=== PATIENT | male | born 1950 | race American Indian/Alaskan Native ===

== ENCOUNTER 2016-12-15 11:14 | Emergency (ER) | payer MEDICARE ==
[2016-12-15 11:35] VITALS: BP 122/80
--- NOTE | 2016-12-15 12:14 | Emergency Department Report ---
Chief Complaint: Chest Pain Stated Complaint: CHEST PAIN Time Seen by Provider: 12/15/16 12:06 - HPI History of Present Illness: Patient here reports uncomfortable feeling and feeling of drowning. He denies cough but reports shortness of breath. PT has a history of CHF, hypertension and arthritis. Denies any swelling in his legs or abdomen. Complaining the chest tightness is 9 out of 10. Denies any nausea or vomiting. Denies any fever or chills. - ROS Review of Systems: all Systems are negative unless stated in HPI above. - Exam Vital Signs: Vital Signs 12/15/16 11:18 Temperature 97.9 F Pulse Rate 66 Respiratory 18 Rate Blood Pressure 122/80 O2 Sat by Pulse 99 Oximetry Physical Exam: General: This is a 66-year-old male well-nourished well-developed in no acute distress. CV: S1, S2. Regular rate and rhythm. Lungs: Clear to auscultate bilaterally, normal work of breathing. Extremity: No clubbing, cyanosis or swelling. Positive pulses MSE screening note: Focused history and physical exam performed. Due to findings the following was ordered:[facility] ED Medical Decision Making - Medical Decision Making Medical decision making: Patient seen by provider in triage area. Appropriate protocol activated and patient to main ED to be seen by physician. ED Disposition for MSE Condition: Stable
[2016-12-15 12:48] LABS: Hematocrit 41.8 % (35.5-45.6); Hemoglobin 13.8 gm/dl (11.8-15.2); Mean Corpuscular HGB Conc 33 % (32-34); Mean Corpuscular Hemoglobin 33 pg (28-32); Mean Corpuscular Volume 99 fl (84-94); Red Blood Count 4.21 M/mm3 (3.65-5.03); Red Cell Distribution Width 14.2 % (13.2-15.2)
[2016-12-15 12:49] LABS: Platelet Count 70 K/mm3 (140-440)
[2016-12-15 13:06] LABS: Creatine Kinase MB 10.2 ng/mL (0.0-4.0)
[2016-12-15 13:09] LABS: Alanine Aminotransferase 34 units/L (7-56); Albumin 3.7 g/dL (3.9-5); Albumin/Globulin Ratio 0.8 %; Alkaline Phosphatase 176 units/L (35-129); Bilirubin,Direct 0.2 mg/dL (0-0.2); Bilirubin,Indirect 0.4 mg/dL; Bilirubin,Total 0.6 mg/dL (0.1-1.2); Blood Urea Nitrogen 10 mg/dL (9-20); Calcium 8.8 mg/dL (8.4-10.2); Carbon Dioxide 25 mmol/L (22-30); Chloride 99.4 mmol/L (98-107); Creatine Kinase 659 units/L (55-170); Glucose 88 mg/dL (75-100); Potassium 4.3 mmol/L (3.6-5.0); Sodium 138 mmol/L (137-145); Total Protein 8.2 g/dL (6.3-8.2)
[2016-12-15 13:13] LABS: Anion Gap 18 mmol/L
[2016-12-15 13:45] LABS: Basophils % (Manual) 0 % (0.0-1.8); Blastocytes % (Manual) 0 %
[2016-12-15 13:46] LABS: Anisocytosis 1+; Diff Status Complete; Platelet Estimate Consistent w Auto
[2016-12-15 14:08] LABS: Bilirubin,Urine NEG (Negative); Blood,Urine MOD (Negative); Ketones,Urine NEG (Negative); Leukocyte Esterase,Urine NEG (Negative); Nitrite,Urine NEG (Negative)
--- NOTE | 2016-12-15 14:24 | XRay Report ---
ROUTINE CHEST, TWO VIEWS: HISTORY: chest pain. The trachea, heart, mediastinal contour, lung costa and bony thorax are unremarkable. IMPRESSION: Unremarkable chest x-ray. No significant change since 11/16/15.
--- NOTE | 2016-12-17 19:19 | ED Elopement Review ---
ED Pt Elopement review - Results review Lab results: Laboratory Tests 12/15/16 12/15/16 12/15/16 12:33 12:33 12:33 WBC 3.0 L RBC 4.21 Hgb 13.8 Hct 41.8 MCV 99 H MCH 33 H MCHC 33 RDW 14.2 Plt Count 70 L [place] % (Auto) Glaciologist Add Manual Diff Complete Total Counted 100 Seg Neutrophils % Glaciologist Seg Neuts % (Manual) 39.0 L Band Neutrophils % 1.0 Lymphocytes % (Manual) 44.0 H Reactive Lymphs % (Man) 0 Monocytes % (Manual) 10.0 H Eosinophils % (Manual) 4.0 Basophils % (Manual) 0 Metamyelocytes % 1.0 Myelocytes % 1.0 Promyelocytes % 0 Blast Cells % 0 Nucleated RBC % Not Reportable Seg Neutrophils # Man 1.2 L Band Neutrophils # 0.0 Lymphocytes # (Manual) 1.3 Abs React Lymphs (Man) 0.0 Monocytes # (Manual) 0.3 Eosinophils # (Manual) 0.1 Basophils # (Manual) 0.0 Metamyelocytes # 0.0 Myelocytes # 0.0 Promyelocytes # 0.0 Blast Cells # 0.0 WBC Morphology Not Reportable Hypersegmented Neuts Not Reportable Hyposegmented Neuts Not Reportable Hypogranular Neuts Not Reportable Smudge Cells Not Reportable Toxic Granulation Not Reportable Toxic Vacuolation Not Reportable Dohle Bodies Not Reportable Pelger-Huet Anomaly Not Reportable Isis Rods Not Reportable Platelet Estimate Consistent w auto Clumped Platelets Not Reportable Plt Clumps, EDTA Not Reportable Large Platelets Not Reportable Giant Platelets Not Reportable Platelet Satelliting Not Reportable Plt Morphology Comment Not Reportable RBC Morphology Not Reportable Dimorphic RBCs Not Reportable Polychromasia Not Reportable Hypochromasia Not Reportable Poikilocytosis Not Reportable Anisocytosis 1+ Microcytosis Not Reportable Macrocytosis Not Reportable Spherocytes Not Reportable Pappenheimer Bodies Not Reportable Sickle Cells Not Reportable Target Cells Not Reportable Tear Drop Cells Not Reportable Ovalocytes Not Reportable Helmet Cells Not Reportable [place] Bodies Not Reportable [place] Rings Not Reportable [place] Cells Not Reportable Bite Cells Not Reportable Crenated Cell Not Reportable Elliptocytes Not Reportable Acanthocytes (Spur) Not Reportable Rouleaux Not Reportable Hemoglobin C Crystals Not Reportable Schistocytes Not Reportable Malaria parasites Not Reportable Alberto Bodies Not Reportable Hem Pathologist Commnt No Sodium 138 Potassium 4.3 Chloride 99.4 Carbon Dioxide 25 Anion Gap 18 BUN 10 Creatinine 1.0 Estimated GFR > 60 BUN/Creatinine Ratio 10.00 Glucose 88 Calcium 8.8 Total Bilirubin 0.6 Direct Bilirubin 0.2 Indirect Bilirubin 0.4 AST 120 H ALT 34 Alkaline Phosphatase 176 H Total Creatine Kinase 659 H CK-MB (CK-2) 10.2 H CK-MB (CK-2) Rel Index 1.5 Troponin T 0.014 NT-Pro-B Natriuret Pep 306.2 Total Protein 8.2 Albumin 3.7 L Albumin/Globulin Ratio 0.8 Urine Color Urine Turbidity Urine pH Ur Specific [place] Urine Protein Urine Glucose (UA) Urine Ketones Urine Blood Urine Nitrite Urine Bilirubin Urine Urobilinogen Ur Leukocyte Esterase Urine WBC (Auto) Urine RBC (Auto) 12/15/16 Unknown WBC RBC Hgb Hct MCV MCH MCHC RDW Plt Count [place] % (Auto) Add Manual Diff Total Counted Seg Neutrophils % Seg Neuts % (Manual) Band Neutrophils % Lymphocytes % (Manual) Reactive Lymphs % (Man) Monocytes % (Manual) Eosinophils % (Manual) Basophils % (Manual) Metamyelocytes % Myelocytes % Promyelocytes % Blast Cells % Nucleated RBC % Seg Neutrophils # Man Band Neutrophils # Lymphocytes # (Manual) Abs React Lymphs (Man) Monocytes # (Manual) Eosinophils # (Manual) Basophils # (Manual) Metamyelocytes # Myelocytes # Promyelocytes # Blast Cells # WBC Morphology Hypersegmented Neuts Hyposegmented Neuts Hypogranular Neuts Smudge Cells Toxic Granulation Toxic Vacuolation Dohle Bodies Pelger-Huet Anomaly Isis Rods Platelet Estimate Clumped Platelets Plt Clumps, EDTA Large Platelets Giant Platelets Platelet Satelliting Plt Morphology Comment RBC Morphology Dimorphic RBCs Polychromasia Hypochromasia Poikilocytosis Anisocytosis Microcytosis Macrocytosis Spherocytes Pappenheimer Bodies Sickle Cells Target Cells Tear Drop Cells Ovalocytes Helmet Cells [place] Bodies [place] Rings [place] Cells Bite Cells Crenated Cell Elliptocytes Acanthocytes (Spur) Rouleaux Hemoglobin C Crystals Schistocytes Malaria parasites Alberto Bodies Hem Pathologist Commnt Sodium Potassium Chloride Carbon Dioxide Anion Gap BUN Creatinine Estimated GFR BUN/Creatinine Ratio Glucose Calcium Total Bilirubin Direct Bilirubin Indirect Bilirubin AST ALT Alkaline Phosphatase Total Creatine Kinase CK-MB (CK-2) CK-MB (CK-2) Rel Index Troponin T NT-Pro-B Natriuret Pep Total Protein Albumin Albumin/Globulin Ratio Urine Color Yellow Urine Turbidity Clear Urine pH 5.0 Ur Specific [place] 1.012 Urine Protein 100 mg/dl Urine Glucose (UA) Neg Urine Ketones Neg Urine Blood Mod Urine Nitrite Neg Urine Bilirubin Neg Urine Urobilinogen 4.0 Ur Leukocyte Esterase Neg Urine WBC (Auto) 1.0 Urine RBC (Auto) 4.0 - Call Back decision Pt Call Back Decision: No action required
== END 2016-12-15 17:00 | disposition left against medical advice (07) ==
LOC: ED 11:14
DX: R07.89 Other chest pain (principal); I11.0 Hypertensive heart disease with heart failure; I50.9 Heart failure, unspecified; M19.90 Unspecified osteoarthritis, unspecified site; Z53.21 Procedure and treatment not carried out due to patient leaving prior to being seen by health care provider
CPT/HCPCS: 36415; 71020; 80048; 80074; 81001; 82550; 82553; 83880; 84484; 85007; 85025; 93005; 93010

== ENCOUNTER 2016-12-29 14:03 | Emergency (ER) | payer MEDICARE ==
[2016-12-29 14:35] LABS: Basophils % (Auto) 1.1 % (0.0-1.8); Eosinophils % (Auto) 0.3 % (0.0-4.3); Hematocrit 42.7 % (35.5-45.6); Hemoglobin 14.2 gm/dl (11.8-15.2); Mean Corpuscular HGB Conc 33 % (32-34); Mean Corpuscular Hemoglobin 33 pg (28-32); Mean Corpuscular Volume 98 fl (84-94); Red Blood Count 4.36 M/mm3 (3.65-5.03); Red Cell Distribution Width 13.7 % (13.2-15.2); White Blood Count 3.8 K/mm3 (4.5-11.0)
[2016-12-29 14:39] LABS: Platelet Count 69 K/mm3 (140-440)
[2016-12-29 14:46] LABS: Anion Gap 24 mmol/L; BUN/Creatinine Ratio 12.22; Blood Urea Nitrogen 11 mg/dL (9-20); Calcium 9.4 mg/dL (8.4-10.2); Carbon Dioxide 24 mmol/L (22-30); Chloride 93.9 mmol/L (98-107); Glucose 117 mg/dL (75-100); Potassium 4.8 mmol/L (3.6-5.0); Sodium 137 mmol/L (137-145)
[2016-12-29] MEDS ORDERED: NORCO 5/325 PO ONE (17:49)
[2016-12-29] MEDS ORDERED: ZOFRAN IV ONE (17:52)
[2016-12-29] MEDS ORDERED: ATIVAN IV ONE (17:52)
[2016-12-29] MEDS ORDERED: VITAMIN B-1 100 MG in NACL 0.9% 50 ML IV ONE (17:52)
[2016-12-29] MEDS ORDERED: MORPHINE IV ONE (17:53)
[2016-12-29] MEDS ORDERED: FOLVITE 1 MG in NACL 0.9% 50 ML IV ONE (17:53)
[2016-12-29] MEDS ORDERED: NORCO 5/325 ONE (18:31)
[2016-12-29 18:59] LABS: Albumin 4.1 g/dL (3.9-5); Albumin/Globulin Ratio 0.9 %; Bilirubin,Direct 0.6 mg/dL (0-0.2); Bilirubin,Indirect 0.9 mg/dL; Bilirubin,Total 1.5 mg/dL (0.1-1.2); Magnesium 1.3 mg/dL (1.7-2.3); Total Protein 8.7 g/dL (6.3-8.2)
[2016-12-29] MEDS ORDERED: MAGNESIUM SULFATE 2GM/50ML 2 GM/50 ML BAG IV ONE (19:27)
--- NOTE | 2016-12-29 20:18 | Emergency Department Report ---
ED Back Pain/Injury HPI - General Chief Complaint: Chest Pain Stated Complaint: BACK PAIN/VOMITING Time Seen by Provider: 12/29/16 17:36 Source: patient, old records reviewed Limitations: No Limitations - History of Present Illness Initial Comments: 66-year-old male with a past medical history of alcohol abuse, hypertension, and CHF presents to the hospital complaints of thoracic back pain since waking up this morning. Pain is aching, constant, worsen movement and moderate in intensity. No relieving factors reported. Patient states that he has shortness of the chest tightness this morning as well as per triage but patient states to me that the symptoms were mild. Patient had nausea with 4 episodes of vomiting and complains of epigastric pain. Patient drinks beer daily and history of alcohol withdrawal seizures and tremors. Last drink was yesterday. No reported hematemesis, melena, or hematochezia. Pt denies recent fall injury, trauma, weakness, numbness, or urinary incontinence past record: Echocardiogram 08/2015 EF 15-20% Cardiac cath 12/14/2014; nonischemic cardiomyopathy EF 15-20% - Related Data Previous Rx's Medication Instructions Recorded Last Taken Type Aspirin EC [Aspirin Enteric Coated 325 mg PO QDAY #30 tablet 09/21/15 03/17/16 Rx TAB] Carvedilol [Coreg] 6.25 mg PO BID #60 tablet 09/21/15 03/17/16 Rx Furosemide [Lasix TAB] 40 mg PO QDAY #30 tablet 09/21/15 03/17/16 Rx Lisinopril [Zestril TAB] 10 mg PO QDAY #30 tablet 09/21/15 03/17/16 Rx Spironolactone [Aldactone] 25 mg PO QDAY #30 tablet 09/21/15 03/17/16 Rx Butalb/Acetamin/Caff 50-325-40 1 each PO Q4H PRN #30 tablet 03/17/16 Unknown Rx [Fioricet] Cyclobenzaprine [Flexeril] 10 mg PO TID PRN #30 tablet 03/17/16 Unknown Rx HYDROcodone/APAP 5-325 [[place] 1 each PO Q6HR PRN #20 tablet 12/30/16 Unknown Rx 5-325 mg TAB] Ibuprofen [Motrin 600 MG tab] 600 mg PO Q8H PRN #30 tablet 12/30/16 Unknown Rx Omeprazole Magnesium [PriLOSEC] 10 mg PO QDAY #30 suspdr.pkt 12/30/16 Unknown Rx Ondansetron [Zofran Odt] 4 mg PO Q8HR PRN #20 tab.rapdis 12/30/16 Unknown Rx Allergies Allergy/AdvReac Type Severity Reaction Status Date / Time No Known Allergies Allergy Verified 12/15/16 11:30 ED Review of Systems ROS: Stated complaint: BACK PAIN/VOMITING Other details as noted in HPI Comment: All other systems reviewed and negative Other: Constitutional: No fevers chills Eyes: No eye pain visual changes ENT: No ear pain or throat pain Neck: Denies pain Respiratory: Denies cough wheezing Cardiovascular: Denies palpitations GI: as per hpi : Denies dysuria Musculoskeletal: as per hpi Skin: Denies rash, lesions, erythema Neurologic: Denies headache, numbness, weakness Psychiatric: Denies suicidal ideation, hallucinations ED Past Medical Hx - Past Medical History Hx Hypertension: Yes Hx Diabetes: No Hx Liver Disease: Yes (Hepatitis C) Hx Renal Disease: Yes Hx Arthritis: Yes Hx Seizures: Yes Additional medical history: ETOH abuse. Echocardiogram 08/2015 EF 15-20%. Cardiac cath 12/14/2014; nonischemic cardiomyopathy EF 15-20% - Surgical History Hx Cholecystectomy: Yes Additional Surgical History: "gallstones" - Social History Smoking Status: Former Smoker Substance Use Type: Alcohol - Medications Home Medications: Home Medications Medication Instructions Recorded Confirmed Last Taken Type Aspirin EC [Aspirin Enteric Coated 325 mg PO QDAY #30 tablet 09/21/15 03/17/16 03/17/16 Rx TAB] Carvedilol [Coreg] 6.25 mg PO BID #60 tablet 09/21/15 03/17/16 03/17/16 Rx Furosemide [Lasix TAB] 40 mg PO QDAY #30 tablet 09/21/15 03/17/16 03/17/16 Rx Lisinopril [Zestril TAB] 10 mg PO QDAY #30 tablet 09/21/15 03/17/16 03/17/16 Rx Spironolactone [Aldactone] 25 mg PO QDAY #30 tablet 09/21/15 03/17/16 03/17/16 Rx Butalb/Acetamin/Caff 50-325-40 1 each PO Q4H PRN #30 tablet 03/17/16 Unknown Rx [Fioricet] Cyclobenzaprine [Flexeril] 10 mg PO TID PRN #30 tablet 03/17/16 Unknown Rx HYDROcodone/APAP 5-325 [[place] 1 each PO Q6HR PRN #20 tablet 12/30/16 Unknown Rx 5-325 mg TAB] Ibuprofen [Motrin 600 MG tab] 600 mg PO Q8H PRN #30 tablet 12/30/16 Unknown Rx Omeprazole Magnesium [PriLOSEC] 10 mg PO QDAY #30 suspdr.pkt 12/30/16 Unknown Rx Ondansetron [Zofran Odt] 4 mg PO Q8HR PRN #20 tab.rapdis 12/30/16 Unknown Rx ED Physical Exam - General Limitations: No Limitations - Other Other exam information: General: No limitations, patient is alert in no acute distress Head exam: Atraumatic, normocephalic Eyes exam: Normal appearance ENT: Moist mucous membrane, normal oropharynx Neck exam: Normal inspection, full range of motion, no meningismus nontender Respiratory exam: Clear to auscultation bilateral, no wheezes, rales, crackles Cardiovascular: Normal rate and rhythm, normal heart sounds Abdomen: Soft, nondistended, epigastric tenderness, with normal bowel sounds, no rebound, or guarding Extremity: Full range of motion normal inspection no deformity Back: Normal Inspection, full range of motion, mild tenderness at mid thoracic area Incr with movement Neurologic: Alert, oriented x3, cranial nerves intact, no motor or sensory deficit, tremor with movement noted Psychiatric: normal affect, normal mood Skin: Warm, dry, intact ED Course Vital Signs 12/29/16 12/29/16 12/29/16 14:10 15:12 18:56 Temperature 97.4 F L Pulse Rate 59 L 73 Respiratory 20 14 Rate Blood Pressure 148/102 Blood Pressure [Right] O2 Sat by Pulse 99 100 98 Oximetry 12/29/16 22:50 Temperature Pulse Rate 67 Respiratory 18 Rate Blood Pressure Blood Pressure 123/86 [Right] O2 Sat by Pulse 98 Oximetry ED Medical Decision Making - Lab Data Result diagrams: 12/29/16 14:22 12/29/16 14:22 Lab Results 12/29/16 12/29/16 12/29/16 Range/Units 14:22 14:22 14:22 WBC 3.8 L (4.5-11.0) K/mm3 RBC 4.36 (3.65-5.03) M/mm3 Hgb 14.2 (11.8-15.2) gm/dl Hct 42.7 (35.5-45.6) % MCV 98 H (84-94) fl MCH 33 H (28-32) pg MCHC 33 (32-34) % RDW 13.7 (13.2-15.2) % Plt Count 69 L (140-440) K/mm3 Lymph % (Auto) 36.2 H (13.4-35.0) % [place] % (Auto) 11.9 H (0.0-7.3) % Eos % (Auto) 0.3 (0.0-4.3) % Baso % (Auto) 1.1 (0.0-1.8) % Lymph # 1.4 (1.2-5.4) K/mm3 [place] # 0.4 (0.0-0.8) K/mm3 Eos # 0.0 (0.0-0.4) K/mm3 Baso # 0.0 (0.0-0.1) K/mm3 Seg Neutrophils % 50.5 (40.0-70.0) % Seg Neutrophils # 1.9 (1.8-7.7) K/mm3 Sodium 137 (137-145) mmol/L Potassium 4.8 (3.6-5.0) mmol/L Chloride 93.9 L (98-107) mmol/L Carbon Dioxide 24 (22-30) mmol/L Anion Gap 24 mmol/L BUN 11 (9-20) mg/dL Creatinine 0.9 (0.8-1.5) mg/dL Estimated GFR > 60 ml/min BUN/Creatinine Ratio 12.22 % Glucose 117 H (75-100) mg/dL Calcium 9.4 (8.4-10.2) mg/dL Magnesium 1.3 L (1.7-2.3) mg/dL Total Bilirubin 1.5 H (0.1-1.2) mg/dL Direct Bilirubin 0.6 H (0-0.2) mg/dL Indirect Bilirubin 0.9 mg/dL AST 136 H (5-40) units/L ALT 36 (7-56) units/L Alkaline Phosphatase 139 H (35-129) units/L Troponin T 0.011 (0.00-0.029) ng/mL Total Protein 8.7 H (6.3-8.2) g/dL Albumin 4.1 (3.9-5) g/dL Albumin/Globulin Ratio 0.9 % Lipase 15 (13-60) units/L 12/29/16 12/29/16 Range/Units 17:54 20:23 WBC (4.5-11.0) K/mm3 RBC (3.65-5.03) M/mm3 Hgb (11.8-15.2) gm/dl Hct (35.5-45.6) % MCV (84-94) fl MCH (28-32) pg MCHC (32-34) % RDW (13.2-15.2) % Plt Count (140-440) K/mm3 Lymph % (Auto) (13.4-35.0) % [place] % (Auto) (0.0-7.3) % Eos % (Auto) (0.0-4.3) % Baso % (Auto) (0.0-1.8) % Lymph # (1.2-5.4) K/mm3 [place] # (0.0-0.8) K/mm3 Eos # (0.0-0.4) K/mm3 Baso # (0.0-0.1) K/mm3 Seg Neutrophils % (40.0-70.0) % Seg Neutrophils # (1.8-7.7) K/mm3 Sodium (137-145) mmol/L Potassium (3.6-5.0) mmol/L Chloride (98-107) mmol/L Carbon Dioxide (22-30) mmol/L Anion Gap mmol/L BUN (9-20) mg/dL Creatinine (0.8-1.5) mg/dL Estimated GFR ml/min BUN/Creatinine Ratio % Glucose (75-100) mg/dL Calcium (8.4-10.2) mg/dL Magnesium (1.7-2.3) mg/dL Total Bilirubin (0.1-1.2) mg/dL Direct Bilirubin (0-0.2) mg/dL Indirect Bilirubin mg/dL AST (5-40) units/L ALT (7-56) units/L Alkaline Phosphatase (35-129) units/L Troponin T 0.011 0.020 (0.00-0.029) ng/mL Total Protein (6.3-8.2) g/dL Albumin (3.9-5) g/dL Albumin/Globulin Ratio % Lipase (13-60) units/L - EKG Data -: EKG Interpreted by Me (nsr 73, nonspecivid t abnl, prolonged qt) - EKG Data When compared to previous EKG there are: no significant change (12/15/16) - Radiology Data Radiology results: report reviewed, image reviewed (cxr pa/lat: naf) ct angio chest: no dissection, no pe, nondisplaced right 10th rib fracture with other old healed right rib fractures. calcified granuloma in the mediastinum - Medical Decision Making Pt ct unremarkable. Patient's pain is in the mid posterior thoracic area and worse with movement and palpation therefore I believe it is musculoskeletal in origin. Patient minimizes chest pain. He denies chest pain in the ED with unchanged EKG and presented to negative cardiac enzymes x 3. Patient also has had a cardiac cath negative for CAD in November 2014. Chronic thrombocytopenia likely secondary to alcohol abuse. Patient also has hypomagnesemia and received magnesium supplementation in the ED. Patient also received thiamine, folate, numbness feeling, and Ativan - Differential Diagnosis fxt, sprain, mi, pe, disection, unstable angina, pancreatitis, gastitis Critical Care Time: No Critical care attestation.: If time is entered above; I have spent that time in minutes in the direct care of this critically ill patient, excluding procedure time. ED Disposition Clinical Impression: Hypomagnesemia, Alcohol abuse, Thrombocytopenia Thoracic back pain Qualifiers: Chronicity: acute Back pain laterality: midline Qualified Code(s): M54.6 - Pain in thoracic spine Rib fractures Qualifiers: Encounter type: sequela Rib fracture type: multiple ribs Fracture type: closed Laterality: right Qualified Code(s): S22.41XS - Multiple fractures of ribs, right side, sequela Alcoholic gastritis Qualifiers: Chronicity: acute Gastritis bleeding: without bleeding Qualified Code(s): K29.20 - Alcoholic gastritis without bleeding Disposition: DISCHARGED TO HOME OR SELFCARE Is pt being admited?: No Does the pt Need Aspirin: No Condition: Stable Instructions: Thoracic Pain (ED), Abuse of Alcohol (ED), Gastritis (ED) Additional Instructions: Take the medication as prescribed. Return if symptoms worsen. Prescriptions: HYDROcodone/APAP 5-325 [[place] 5-325 mg TAB] 1 each PO Q6HR PRN #20 tablet PRN Reason: Pain Ibuprofen [Motrin 600 MG tab] 600 mg PO Q8H PRN #30 tablet PRN Reason: Pain Omeprazole Magnesium [PriLOSEC] 10 mg PO QDAY #30 suspdr.pkt Ondansetron [Zofran Odt] 4 mg PO Q8HR PRN #20 tab.rapdis PRN Reason: Nausea And Vomiting Referrals: RUSSELL DHALIWAL MD [Primary Care Provider] - 3-5 Days Time of Disposition: 00:10
[2016-12-29] MEDS ORDERED: NACL ONE (20:42)
--- NOTE | 2016-12-29 22:07 | Cat Scan Report ---
FINAL REPORT PROCEDURE: CT ANGIO CHEST TECHNIQUE: Computerized tomographic angiography of the chest was performed after the IV injection of iodinated nonionic contrast including image processing. The image data was postprocessed using 2-dimensional multiplanar reformatted (MPR) and 3-dimensional (MIP and/or volume rendered) techniques. HISTORY: thoracic pain, cp COMPARISON: CTA exam dated September 19, 2015 FINDINGS: Mild hypoventilatory changes are seen in the right lower lung. No pneumothorax or pleural effusion is seen. There is likely fatty infiltration of the liver. The heart and thoracic aorta are normal in size. No evidence of aortic dissection is seen. Calcified granuloma are seen in the mediastinum. No pulmonary embolus is seen. There is a nondisplaced fracture of the lateral aspect the right 10th rib with other old healed right lower rib fractures. IMPRESSION: No pulmonary embolus is seen. Nondisplaced right 10th rib fracture is seen.
[2016-12-29 22:51] VITALS: BP 123/86
--- NOTE | 2016-12-30 09:40 | XRay Report ---
Chest 2 views: Compared to 12/15/16. History: Thoracic back pain, chest pain. Findings: Normal cardiomediastinal silhouette. Trachea is midline. No consolidation, pneumothorax or pleural effusion. Impression: No acute cardiopulmonary findings.
== END 2016-12-30 01:32 | disposition home or self-care (01) ==
LOC: ED 14:03
DX: E83.42 Hypomagnesemia (principal); S22.41XS Multiple fractures of ribs, right side, sequela; K29.20 Alcoholic gastritis without bleeding; F10.10 Alcohol abuse, uncomplicated; D69.6 Thrombocytopenia, unspecified; I10 Essential (primary) hypertension; M19.90 Unspecified osteoarthritis, unspecified site; Z79.82 Long term (current) use of aspirin; Z87.891 Personal history of nicotine dependence
CPT/HCPCS: 36415; 71020; 71275; 80048; 80074; 83690; 83735; 84484; 85025; 93005; 93010; 96374; 96375; 99285; J2060; J2270; J2405; J3411; J3475; Q9967

== ENCOUNTER 2017-01-10 12:32 | Emergency (ER) | payer MEDICARE ==
[2017-01-10 13:18] LABS: Basophils % (Auto) 1.3 % (0.0-1.8); Eosinophils % (Auto) 2.7 % (0.0-4.3); Hemoglobin 14.2 gm/dl (11.8-15.2); Mean Corpuscular HGB Conc 32 % (32-34); Mean Corpuscular Hemoglobin 32 pg (28-32); Mean Corpuscular Volume 99 fl (84-94); Platelet Count 224 K/mm3 (140-440); Red Blood Count 4.45 M/mm3 (3.65-5.03); Red Cell Distribution Width 13.7 % (13.2-15.2); White Blood Count 6.3 K/mm3 (4.5-11.0)
[2017-01-10 13:35] LABS: Anion Gap 20 mmol/L; Blood Urea Nitrogen 11 mg/dL (9-20); Calcium 9.5 mg/dL (8.4-10.2); Carbon Dioxide 25 mmol/L (22-30); Glucose 96 mg/dL (75-100); Potassium 4.8 mmol/L (3.6-5.0); Sodium 137 mmol/L (137-145)
[2017-01-10] MEDS ORDERED: MORPHINE IM ONE (16:54)
--- NOTE | 2017-01-10 17:18 | Emergency Department Report ---
HPI - General Chief Complaint: Chest Pain Time Seen by Provider: 01/10/17 16:46 - HPI HPI: This is a 66-year-old -[place] male who presents to the emergency department, driven in by his , for the complaints of chest pain, back pain and shortness of breath that began about 6 AM this morning. Patient says that the chest pain was sharp and was left-sided but then moved to the right side and currently has resolved. Patient still has the back pain, which is lower back and goes across the entire back. He denies any problems with bowel or bladder, numbness or paresthesias or any neurological deficits. He also has the shortness of breath which is mild but still there. He denies any cough, wheezing, fever, nausea, vomiting or any diaphoresis. He denies any history of [place], CVA, PE/DVT. He has a history of hypertension and presents with some elevated blood pressure despite having taken his medications. 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 His primary care doctor is a Dr. Benz and his medical radiation dosimetrist is Dr. Mahoney. He does admit to occasional marijuana use, last having used 2 days ago. No recent travel or sick contacts at home. He did not take anything for symptoms prior to presentation. ED Past Medical Hx - Past Medical History Hx Hypertension: Yes Hx Diabetes: No Hx Liver Disease: Yes (Hepatitis C) Hx Renal Disease: Yes Hx Arthritis: Yes Hx Seizures: Yes Additional medical history: ETOH abuse. Echocardiogram 08/2015 EF 15-20%. Cardiac cath 12/14/2014; nonischemic cardiomyopathy EF 15-20% - Surgical History Hx Cholecystectomy: Yes Additional Surgical History: "gallstones" - Social History Smoking Status: Never Smoker Substance Use Type: Alcohol, Marijuana - Medications Home Medications: Home Medications Medication Instructions Recorded Confirmed Last Taken Type Aspirin EC [Aspirin Enteric Coated 325 mg PO QDAY #30 tablet 09/21/15 01/10/17 03/17/16 Rx TAB] Carvedilol [Coreg] 6.25 mg PO BID #60 tablet 09/21/15 01/10/17 03/17/16 Rx Lisinopril [Zestril TAB] 10 mg PO QDAY #30 tablet 09/21/15 01/10/17 03/17/16 Rx Omeprazole Magnesium [PriLOSEC] 10 mg PO QDAY #30 suspdr.pkt 12/30/16 01/10/17 Unknown Rx Ondansetron [Zofran Odt] 4 mg PO Q8HR PRN #20 tab.rapdis 12/30/16 01/10/17 Unknown Rx Potassium Chloride 10 meq PO QDAY 01/10/17 01/10/17 Unknown History ED Review of Systems ROS: Stated complaint: MALENA/HEART PAIN Other details as noted in HPI Comment: All other systems reviewed and negative Constitutional: denies: chills, fever Eyes: denies: eye pain, eye discharge, vision change ENT: denies: ear pain, throat pain Respiratory: shortness of breath. denies: cough Cardiovascular: chest pain. denies: palpitations, edema Gastrointestinal: denies: abdominal pain, nausea, diarrhea Genitourinary: denies: urgency, dysuria Musculoskeletal: back pain. denies: arthralgia Skin: denies: rash, lesions Neurological: denies: headache, weakness, paresthesias Physical Exam - Physical Exam Vital Signs: Vital Signs 01/10/17 12:49 Temperature 97.7 F Pulse Rate 80 Respiratory 24 Rate Blood Pressure 150/113 O2 Sat by Pulse 95 Oximetry Physical Exam: GENERAL: The patient is well-developed well-nourished. HEENT: Normocephalic. Atraumatic. Extraocular motions are intact. Patient has moist mucous membranes. Pupils equal reactive to light bilaterally. NECK: Supple. Trachea is midline. CHEST/LUNGS: Clear to auscultation. There is no respiratory distress noted. HEART/CARDIOVASCULAR: Regular. There is no tachycardia. There is no gallop rub or murmur. ABDOMEN: Abdomen is soft, nontender. Patient has normal bowel sounds. There is no abdominal distention. SKIN: There is no rash. There is no edema. There is no diaphoresis. NEURO: The patient is awake, alert, and oriented. The patient is cooperative. The patient has no focal neurologic deficits. The patient has normal speech. Cranial nerves II through XII grossly intact. MUSCULOSKELETAL: There is no tenderness or deformity. There is no limitation range of motion. There is no evidence of acute injury. Muscle strength 5 out of 5 for upper and lower extremities bilaterally including EHL. BACK: Patient has both midline and paraspinal lumbar tenderness to palpation but no step-off or deformity. ED Course Vital Signs 01/10/17 12:49 Temperature 97.7 F Pulse Rate 80 Respiratory 24 Rate Blood Pressure 150/113 O2 Sat by Pulse 95 Oximetry ED Medical Decision Making - Lab Data Result diagrams: 01/10/17 13:04 01/10/17 13:04 - EKG Data -: EKG Interpreted by Me EKG shows normal: sinus rhythm (with sinus arrhythmia), axis, intervals, QRS complexes, ST-T waves Rate: normal - EKG Data When compared to previous EKG there are: previous EKG unavailable Interpretation: normal EKG - Medical Decision Making 66-year-old male presents to the emergency department with chest pain, back pain and some shortness of breath. The chest pain has resolved by the time I'm seeing this patient. His back pain is lumbar and both midline and paraspinal and there has been no trauma and there is no deformity and therefore I do not feel there is any imaging necessary. He is neurovascularly intact without any motor, sensory or focal deficits and his cranial nerves are intact. His EKG does not show any signs of ST elevation [place], ischemia or dysrhythmia. His labs are unremarkable including negative troponins 2 and thus far. Patient was recently here and just had a CT angiography of the chest did not show any signs of pulmonary embolism. He is low on the well's score criteria and the vital signs stable including no hypoxia, being afebrile, and no tachycardia. Patient was given a single dose of pain medication and upon reevaluation he is pain- free. He was seen ambulatory in the emergency department and appears stable while doing so. He will be discharged home to follow-up with a primary care doctor and also will be given a cardiology referral. He will return to the ER with any worsening of his symptoms or any acute distress. - Differential Diagnosis [place], costochondritis, muscle strain, pneumonia, contusion Critical Care Time: No Critical care attestation.: If time is entered above; I have spent that time in minutes in the direct care of this critically ill patient, excluding procedure time. ED Disposition Clinical Impression: Hypertension Qualifiers: Hypertension type: essential hypertension Qualified Code(s): I10 - Essential ( primary) hypertension Chest pain Qualifiers: Chest pain type: unspecified Qualified Code(s): R07.9 - Chest pain, unspecified Back pain Qualifiers: Back pain location: low back pain Chronicity: unspecified Back pain laterality : bilateral Sciatica presence: without sciatica Qualified Code(s): M54.5 - Low back pain Disposition: DISCHARGED TO HOME OR SELFCARE Is pt being admited?: No Condition: Good Instructions: Hypertension (ED), Chest Pain (ED), Back Pain (ED) Additional Instructions: Please follow-up with your primary care doctor the next few days. I will also given a referral for a local medical radiation dosimetrist, Dr. Tsang, encase she needs to follow -up regarding your chest pain that has since resolved. Return to the emergency department with any return of your symptoms, or any acute distress. Referrals: RUSSELL BENZ MD [Primary Care Provider] - 3-5 Days MARTIN TSANG MD [Staff Physician] - 3-5 Days Time of Disposition: 18:43
[2017-01-10 19:23] VITALS: BP 156/103
--- NOTE | 2017-01-11 08:59 | XRay Report ---
CHEST 2 VIEWS INDICATION: Chest pain. Known right lower rib fractures. COMPARISON: 12/29/2016 FINDINGS: Frontal and lateral chest radiographs, 3 images, demonstrate stable cardiomediastinal silhouette. Minimal fluid or thickening along the fissures again seen with minimal bilateral pleural effusions also not excluded. No dense focal consolidation or overt CHF. EKG leads. Stable bones. CONCLUSION: Slight increased cardiopulmonary fluid overload possible radiographically without overt CHF with few other incidental findings, as above. Please correlate. Thank you for the opportunity to participate in this patient's care.
== END 2017-01-10 19:22 | disposition home or self-care (01) ==
LOC: ED 12:32
DX: I10 Essential (primary) hypertension (principal); R07.9 Chest pain, unspecified; M54.5 Low back pain; F12.10 Cannabis abuse, uncomplicated
CPT/HCPCS: 36415; 71020; 80048; 84484; 85025; 93005; 93010; 96372; 99284; J2270